=== PATIENT | female | born 1990 | race Hispanic/Latino ===

== ENCOUNTER 2018-12-14 21:10 | Emergency (ER) | payer OTHER ==
[2018-12-14] MEDS ORDERED: KETOROLAC TROMETHAMINE 60 MG/2 ML VIAL ONE (22:00)
== END 2018-12-14 22:14 | disposition home or self-care (01) ==
LOC: EDH 21:10
DX: N60.12 Diffuse cystic mastopathy of left breast (principal); N60.11 Diffuse cystic mastopathy of right breast; Z98.890 Other specified postprocedural states
CPT/HCPCS: 81025; 96372; 99283; J1885